=== PATIENT | female | born 1980 | race Caucasian/White ===

== ENCOUNTER → 2024-01-02 09:34 | Outpatient (CLI) | payer OTHER, SELFPAY ==
--- NOTE | 2024-01-02 09:37 | DI.US.S_ITS ---
LIMITED ULTRASOUND OF LEFT BREAST: 01/02/2024 CLINICAL: Patient returns today to evaluate a focal asymmetry in the left breast. Comparison is made to exams dated: 01/02/2024 mammogram - [facility] and 11/30/2023 mammogram - [facility]. Color flow, real-time, and continuous wave Doppler ultrasound of the left breast 3 o'clock region were performed on the areas of interest. There is a 2.7 cm x 2.8 cm x 1.3 cm oval simple cyst in the left breast at 3 o'clock anterior depth. This oval simple cyst is anechoic with a well-defined boundary and posterior acoustic enhancement. This correlates with mammography findings. IMPRESSION: BENIGN There is no sonographic evidence of malignancy. The 2.7 cm x 2.8 cm x 1.3 cm oval simple cyst in the left breast is benign. A 1 year screening mammogram is recommended. This exam was interpreted at Station ID: [id number]. Electronically Signed By: Stephany coleman/:01/02/2024 10:56:35 Entry: - 01/03/2024 15:30:13 Ultrasound BI-RADS: 2 Benign
--- NOTE | 2024-01-02 09:37 | DI.US.S_ITS ---
LIMITED ULTRASOUND OF RIGHT BREAST: 01/02/2024 CLINICAL: Patient returns today to evaluate a focal asymmetry in the right breast. Comparison is made to exams dated: 01/02/2024 mammogram - [facility] and 11/30/2023 mammogram - [facility]. Color flow, real-time, and continuous wave Doppler ultrasound of the right breast 10 o'clock region were performed on the areas of interest. There is a 5.2 cm x 2.7 cm x 4.8 cm oval complicated cyst in the right breast at 10 o'clock anterior depth. This oval complicated cyst is hypoechoic with a well-defined boundary, internal echoes, and posterior acoustic enhancement. Color flow imaging demonstrates that there is no vascularity present. IMPRESSION: PROBABLY BENIGN The 5.2 cm x 2.7 cm x 4.8 cm oval complicated cyst in the right breast is probably benign. A follow-up ultrasound in 6 months is recommended to demonstrate stability. This exam was interpreted at Station ID: [id number]. Electronically Signed By: Stephany coleman/:01/02/2024 10:55:44 letter sent: Followup Recommended Ultrasound BI-RADS: 3 Probably benign
--- NOTE | 2024-01-02 09:37 | DI.MG.S_ITS ---
BILATERAL DIGITAL DIAGNOSTIC MAMMOGRAM 3D/2D: 01/02/2024 CLINICAL: Additional evaluation requested from prior study. Comparison is made to exam dated: 11/30/2023 mammogram - [facility]. Both breasts are heterogeneously dense, which may obscure small masses (category c / 51-75% glandular tissue). There are benign milk of calcium calcifications in both breasts. There is a mass in the right breast at 10 o'clock anterior depth. There is a mass in the left breast at 3 o'clock middle depth. No other significant masses or calcifications are seen in either breast. IMPRESSION: INCOMPLETE: NEEDS ADDITIONAL IMAGING EVALUATION The mass in the right breast at 10 o'clock anterior depth likely represents a cyst and is indeterminate. An ultrasound is recommended. The mass in the left breast at 3 o'clock middle depth likely represents a cyst and is indeterminate. An ultrasound is recommended. A targeted ultrasound of the bilateral breasts is recommended and will be performed immediately following this exam. Based on the Tyrer Cuzick model (a risk assessment model) the patient's lifetime risk is 15.9% and her 10 year risk is 2.6%. According to the ACR, ACS, and NCCN guidelines, an annual breast MRI exam along with mammogram is recommended if the patient's lifetime risk is 20% or greater. This exam was interpreted at Station ID: [id number]. NOTE: For mammograms, a report in lay terms will be sent to the patient. Approximately 15% of breast malignancies will not be visualized mammographically. In the management of a palpable breast mass, a negative mammogram must not discourage biopsy of a clinically suspicious lesion. Electronically Signed By: Stephany coleman/:01/02/2024 10:32:00 ACR BI-RADS Category 0: Incomplete 3340F
== END ==
LOC: MAMMO 09:36
PROVIDERS: PCP Nurse Practitioner Family; Referring Provider Nurse Practitioner Family; Visit Provider Nurse Practitioner Family
DX: R92.8 Other abnormal and inconclusive findings on diagnostic imaging of breast (principal); N60.01 Solitary cyst of right breast; N60.02 Solitary cyst of left breast; R92.333 Mammographic heterogeneous density, bilateral breasts
CPT/HCPCS: 76642; 77066; G0279

== ENCOUNTER → 2024-03-04 10:06 | Outpatient (CLI) | payer OTHER, SELFPAY ==
--- NOTE | 2024-03-04 10:07 | DI.US.S_ITS ---
LIMITED ULTRASOUND OF RIGHT BREAST: 03/04/2024 CLINICAL: Follow up from addtional views. Comparison is made to exams dated: 03/04/2024 mammogram, 01/02/2024 ultrasound, 01/02/2024 mammogram - [facility], and 11/30/2023 mammogram - [facility]. Color flow and real-time ultrasound of the right breast 9 o'clock and 11 o'clock regions were performed. There is a 4.4 cm x 3.1 cm x 3.1 cm oval cyst with debris in the right breast at 11 o'clock anterior depth 1 cm from the nipple. This oval cyst with debris is hypoechoic with an abrupt boundary and posterior acoustic enhancement. This abnormality is decreased in size and correlates as palpated. Color flow imaging demonstrates that there is no vascularity present. There also is an area of fibrocystic tissue in the right breast at 9 o'clock posterior depth. This area includes discrete complicated cysts ranging from 0.5 to 0.8 cm with posterior acoustic enhancement. This correlates as an incidental finding. Color flow imaging demonstrates that there is no vascularity present. IMPRESSION: SUSPICIOUS OF MALIGNANCY The 4.4 cm x 3.1 cm x 3.1 cm oval cyst with debris in the right breast at 11 o'clock anterior depth is consistent with a complicated cyst and is probably benign. A cyst aspiration for relief is recommended. The area of fibrocystic tissue in the right breast at 9 o'clock posterior depth is consistent with complicated cysts or fibrocystic change and is probably benign. Future imaging is recommended as follows: 07/03/2024 follow-up right ultrasound. Findings and recommendations were conveyed to the patient at time of exam. This exam was interpreted at Station ID: [id number]. Electronically Signed By: Alexandra agarwal/:03/04/2024 12:52:34 letter sent: Followup Recommended Ultrasound BI-RADS: 4 Suspicious for malignancy
--- NOTE | 2024-03-04 10:07 | DI.MG.S_ITS ---
UNILATERAL RIGHT DIGITAL DIAGNOSTIC MAMMOGRAM 3D/2D: 03/04/2024 CLINICAL: Palpable right breast lump. Comparison is made to exams dated: 01/02/2024 mammogram - [facility] and 11/30/2023 mammogram - [facility]. The right breast is heterogeneously dense, which may obscure small masses (category c / 51-75% glandular tissue). There is a 4.5 cm complicated cyst with an obscured and circumscribed margin in the right breast at 12 o'clock middle depth. This was demonstrated by prior ultrasound, characterized 2 months ago. This is not significantly changed and correlates as palpated. No new masses or calcifications are seen in the breast. IMPRESSION: INCOMPLETE: NEEDS ADDITIONAL IMAGING EVALUATION The 4.5 cm cyst in the right breast is unchanged in mammographic appearance and corresponds to the palpable abnormality. This was recently evaluated. A repeat ultrasound will be performed because the lesion has become more noticible to the patient. This was performed immediately following this exam. Based on the Tyrer Cuzick model (a risk assessment model) the patient's lifetime risk is 16.6% and her 10 year risk is 2.8%. According to the ACR, ACS, and NCCN guidelines, an annual breast MRI exam along with mammogram is recommended if the patient's lifetime risk is 20% or greater. This exam was interpreted at Station ID: [id number]. NOTE: For mammograms, a report in lay terms will be sent to the patient. Approximately 15% of breast malignancies will not be visualized mammographically. In the management of a palpable breast mass, a negative mammogram must not discourage biopsy of a clinically suspicious lesion. Electronically Signed By: Alexandra agarwal/:03/04/2024 11:04:26 ACR BI-RADS Category 0: Incomplete 3340F
== END ==
LOC: MAMMO 10:07
PROVIDERS: PCP Nurse Practitioner Family; Referring Provider Nurse Practitioner Family; Visit Provider Nurse Practitioner Family
DX: R92.2 Inconclusive mammogram (principal); N63.10 Unspecified lump in the right breast, unspecified quadrant; R92.331 Mammographic heterogeneous density, right breast; N60.01 Solitary cyst of right breast
CPT/HCPCS: 76642; 77065; G0279

== ENCOUNTER → 2024-03-13 | Outpatient (CLI) | payer OTHER, SELFPAY ==
--- NOTE | 2024-03-13 | PATH_ITS ---
Note [facility] Accession Number: [id number] TESTS RESULT FLAG UNITS REF RANGE LAB Clinician Provided Cytology Information No. of containers..01 Other (Miscellaneous) Source: RIGHT BREAST CYST DIAGNOSIS: RIGHT BREAST CYST, FINE NEEDLE ASPIRATION. NEGATIVE FOR MALIGNANT CELLS. FOAM CELLS ARE PRESENT, SUGGESTIVE OF FIBROCYSTIC CHANGES. DUCTAL EPITHELIAL CELLS NOT SEEN. CLINICAL AND RADIOLOGIC CORRELATION IS RECOMMENDED TO ENSURE THAT THIS ASPIRATE IS REGISTRATION MANAGER OF THE AREA OF INTEREST. THIS INTERPRETATION INCLUDES EVALUATION OF A CELL BLOCK. Pathologist ICD10: 01 N63.10 Signed out by: Elba Antunez MD, Pathologist NPI- [id number] Performed by: Tristan Holliday, Piece Worker ([facility]) Gross description: 50 CC, BROWN, CLOUDY RECIEVED: IN CYTOLYT WITH BLUE CAP CONTAINER.VO /VDU 03/14/2024 1031 Local FLAG LEGEND: L-Low Normal,H-High Normal,LL-Alert Low,HH-Alert High <-Panic Low,>-Panic High,A-Abnormal,AA-Critical Abnormal Performed at: 01 =Z [facility], [place] [address] Everardo Joyce MD, Performed at: [address] [facility], [place], [place] [id number] MD Everardo Joyce MD Phone: [phone]
--- NOTE | 2024-03-13 13:41 | DI.US.S_ITS ---
ULTRASOUND GUIDED ASPIRATION RIGHT BREAST WITH POST ULTRASOUND IMAGIN03/13/2024 CLINICAL: Rt brst cyst aspiration. Correlation is made to exams dated: 03/04/2024 ultrasound, 03/04/2024 mammogram, and 01/02/2024 ultrasound - [facility]. An aspiration was performed for the oval cyst located in the right breast at 11 o'clock anterior depth. This was described on the previous ultrasound report. The skin was prepped in the usual manner. Local anesthetic was administered to the access site. A 20 gauge needle was percutaneously placed into the abnormality under ultrasound guidance. Once the needle was documented to be in the correct location, 26 cc of turbid white yellow fluid was aspirated. A skin closure strip was applied to the access site. Post procedure ultrasound imaging was obtained. The aspirated fluid was sent for cytological and bacterial analysis. IMPRESSION: ASPIRATION BENIGN Aspiration of the cyst in the right breast anterior depth was successful. Pathology indicates benign foam cells indicative of fibrocystic changes (FC). No ductal epithelial cells. Pathology results are concordant with imaging findings. A follow-up right mammogram and an ultrasound in 6 months is recommended to demonstrate stability. This exam was interpreted at Station ID: [id number]. Alexandra agarwal,aty/:03/24/2024 18:33:16
== END ==
PROVIDERS: PCP Nurse Practitioner Family; Referring Provider Nurse Practitioner Family; Visit Provider Nurse Practitioner Family
DX: N60.01 Solitary cyst of right breast
CPT/HCPCS: 10005

== ENCOUNTER → 2024-06-04 16:10 | Outpatient (CLI) | payer OTHER, SELFPAY ==
[2024-06-04 17:25] LABS: Influenza A - CEPHEID Flu A NEGATIVE (NEGATIVE); Influenza B - CEPHEID Flu B NEGATIVE (NEGATIVE); Respiratory Syncytial Virus Negative (Negative)
[2024-06-04 17:33] LABS: COVID-19 CEPHEID 4-PLEX PCR Negative (Negative)
== END ==
PROVIDERS: PCP Nurse Practitioner Family; Visit Provider Nurse Practitioner Family
DX: R05.1 Acute cough (principal)
CPT/HCPCS: 0241U

== ENCOUNTER → 2024-06-04 16:56 | Outpatient (CLI) | payer OTHER, SELFPAY ==
--- NOTE | 2024-06-04 16:57 | DI.RAD.S_ITS ---
PROCEDURE: XR CHEST 2V INDICATIONS: Cough TECHNIQUE: 2 views of the chest were acquired. COMPARISON: None. FINDINGS: Surgical changes and devices: None. Lungs and pleura: Lungs are clear. No pleural effusions or pneumothorax. Mediastinum: Mediastinal contours are normal. Heart size is normal. Bones and chest wall: No suspicious bony abnormalities. Soft tissues appear unremarkable. IMPRESSION: No acute cardiopulmonary abnormality is seen. Dictated by: Mine Bañuelos M.D. on 06/05/2024 at 10:00 Approved by: Mine Bañuelos M.D. on 06/05/2024 at 10:01
== END ==
PROVIDERS: PCP Nurse Practitioner Family; Referring Provider Nurse Practitioner Family; Visit Provider Nurse Practitioner Family
DX: R05.1 Acute cough (principal)
CPT/HCPCS: 0241U; 71046

== ENCOUNTER → 2025-01-29 10:13 | Outpatient (CLI) | payer OTHER, SELFPAY ==
--- NOTE | 2025-01-29 10:14 | DI.US.S_ITS ---
MM diagnostic mammo BI, US breast RT limited: 01/29/2025 BI-RADS: 2 CLINICAL: 44-year old female for bilateral diagnostic mammogram and right diagnostic breast ultrasound. Tyrer-Cuzick lifetime risk of 14.8%. No personal or first- degree family history of breast cancer. Current reported family history of breast cancer: maternal grandmother. The patient presents for a follow-up of previously described probably benign findings in the right breast. PRIOR EXAMS 03/04/2024, 01/02/2024, 11/30/2023. MAMMOGRAPHY TECHNIQUE: 2D and 3D (tomosynthesis) digital mammographic views obtained, with additional images as needed for full coverage. Current study was also evaluated with a Computer Aided Detection (CAD) system. ULTRASOUND TECHNIQUE Real-time segovia scale and color doppler imaging of the area of clinical interest was performed with image documentation. DENSITY C. The breasts are heterogeneously dense, which may obscure small masses. MAMMOGRAPHY FINDINGS Bilateral: There are multiple bilateral benign appearing round and oval circumscribed masses. There are benign milk of calcium calcifications. ULTRASOUND FINDINGS Right: Outer at 9:00, 9 cm from nipple, measuring 1.8 x 0.8 x 1 cm: There are two simple cysts. These findings are stable since December 2023 and are benign. Right: Upper Outer at 11:00, 2 cm from nipple: There is no sonographic abnormality at 11 o'clock, 1 cm from the nipple. The previously seen cyst was aspirated. IMPRESSION: * No evidence of malignancy with benign findings. RECOMMENDATIONS Bilateral * Annual screening mammography. COMMENTS: Findings and recommendations were conveyed to the patient during today's evaluation. OVERALL ASSESSMENT CATEGORY BI-RADS-2: Benign. The [employer] recommends annual screening mammography beginning at age 40 for women with average risk of breast cancer. ELECTRONICALLY SIGNED: Suki Evans M.D. on 01/29/2025 at 04:27:08 PM PT Interpreting Station ID: [id number]
== END ==
LOC: MAMMO 10:13
PROVIDERS: PCP Nurse Practitioner Family; Referring Provider Nurse Practitioner Family; Visit Provider Nurse Practitioner Family
DX: N63.10 Unspecified lump in the right breast, unspecified quadrant (principal); R92.333 Mammographic heterogeneous density, bilateral breasts; N60.01 Solitary cyst of right breast; Z80.3 Family history of malignant neoplasm of breast
CPT/HCPCS: 76642; 77066; G0279